=== PATIENT | male | born 1945 | race Caucasian/White ===

== ENCOUNTER 2016-06-23 05:11 | Observation (INO) | payer OTHER ==
--- NOTE | 2016-06-23 05:29 | CPEKG ---
Heart Rate: 101 RR Interval: 594 P-R Interval: 144 QRSD Interval: 70 QT Interval: 340 QTC Interval: 441 P [place]: 54 QRS [place]: 26 T Wave [place]: 243 EKG Severity - OTHERWISE NORMAL ECG - EKG Impression: SINUS TACHYCARDIA Electronically Signed By: Karlo Aquino 23-Jun-2016 07:10:20
--- NOTE | 2016-06-23 05:40 | EDPHY ---
H & P Stated Complaint: chest discomfort all night Time Seen by Provider: 06/23/16 05:27 HPI/ROS: Chief complaint: Chest pain HPI: 70-year-old male has been having substernal chest discomfort since 8 o' clock last night. At worst was a 10 on 10. Over the course of the evening has gone down to a 1 on 10. No shortness of breath. No fevers or chills. Has some generalized fatigue with ambulating. He has a history of a diabetes, coronary artery disease having had a DC in the past and has had cardiac stenting. Pain is described as a tightness. There are no aggravating or alleviating factors. ROS: 10 point Review of Systems is negative except as noted in the HPI. Past medical history: Type 2 diabetes Coronary artery disease DC Medications: Janumet twice a day Lipitor 40 mg once a day Clopidogrel 75 mg once a day Losartan HCT 100-25 once a day Lantus 25 units in a.m., 45 units at night Aspirin 325 once a day Amlodipine 2.5 mg once a day Allergies: Cipro, sulfa Physical exam: Gen: Awake, Alert, No Distress HEENT: Nose: no rhinorrhea Eyes: PERRLA, EOMI Mouth: Moist mucosa Neck: Supple, no JVD Chest: nontender, lungs clear to auscultation Heart: S1, S2 normal, no murmur Abd: Soft, non-tender, no guarding Back: no CVA tenderness, no midline tenderness Ext: no edema, non-tender Skin: no rash Neuro: CN II-XII intact, Sensation grossly intact, Strength 5/5 in bilateral upper and lower extremities - Personal History Current Tetanus/Diphtheria Vaccine: Yes - Medical/Surgical History Hx Asthma: No Hx Chronic Respiratory Disease: No Hx Diabetes: Yes Hx Cardiac Disease: Yes Hx Renal Disease: No Hx Cirrhosis: No Hx Alcoholism: No Hx HIV/AIDS: No Hx Splenectomy or Spleen Trauma: No Other PMH: PMHx: HTN, DC 16 YEARS AGO. PSHx: 3 cardiac stents, cataract - Social History Smoking Status: Never smoked Constitutional: Initial Vital Signs Temperature (C) 36.6 C 06/23/16 05:16 Heart Rate 105 H 06/23/16 05:16 Respiratory Rate 17 06/23/16 05:16 Blood Pressure 164/91 H 06/23/16 05:16 O2 Sat (%) 93 06/23/16 05:16 O2 Delivery Mode Room Air Allergies/Adverse Reactions: ciprofloxacin [From Cipro] Allergy (Mild, Verified 02/10/14 08:05) itch ciprofloxacin HCl [From Cipro] Allergy (Mild, Verified 02/10/14 08:05) itch Sulfa (Sulfonamide Antibiotics) Allergy (Unknown, Verified 02/10/14 08:05) meperidine HCl [From Demerol] Allergy (Verified 02/10/14 08:04) Home Medications: Medication Instructions Recorded Aspirin [Aspirin 325 mg (OTC)] 325 mg PO DAILY 02/07/14 Atorvastatin Calcium [Lipitor 40 40 mg PO DAILY 02/07/14 mg (RX)] Clopidogrel Bisulfate [Plavix (RX)] 75 mg PO DAILY 02/07/14 Insulin Glargine [Lantus 100 0 units SC HS 02/07/14 UNITS/ML (RX)] Losartan/Hydrochlorothiazide 1 each PO 02/07/14 [Losartan-Hctz 100-25 Mg Tab] Sitagliptin Phos/Metformin HCl 1 each PO 02/07/14 [Janumet Xr 100-1,000 mg Tablet] amLODIPine BESYLATE [Norvasc 2.5 2.5 mg PO DAILY 02/07/14 mg (RX)] Medical Decision Making - Diagnostics EKG Interpretation: EC08/2026: Sinus tachycardia with a rate of 101, normal axis, normal intervals, no acute ST or T-wave changes Imaging: Chest x-ray: Negative for acute process. ED Course/Re-evaluation: 70-year-old diabetic with coronary disease presenting with chest pain. Normal ECG at this time. Troponin is negative. Given his multiple risk factors and comorbidities in history will admit for further evaluation. Discussed with Dr. Fortunato Mera, hospitalist. Will admit to his service for further evaluation - Data Points Laboratory Results: Laboratory Results 06/23/16 05:30 06/23/16 05:30 06/23/16 06/23/16 05:30 05:30 WBC 10.72 10^3/uL H 10^3/uL (3.80-9.50) RBC 4.25 10^6/uL L 10^6/uL (4.40-6.38) Hgb 13.5 g/dL L g/dL (13.7-17.5) Hct 37.7 % L % (40.0-51.0) MCV 88.7 fL fL (81.5-99.8) MCH 31.8 pg pg (27.9-34.1) MCHC 35.8 g/dL g/dL (32.4-36.7) RDW 12.3 % % (11.5-15.2) Plt Count 247 10^3/uL 10^3/uL (150-400) MPV 9.5 fL fL (8.7-11.7) Neut % (Auto) 59.8 % % (39.3-74.2) Lymph % (Auto) 27.9 % % (15.0-45.0) Rains % (Auto) 9.1 % % (4.5-13.0) Eos % (Auto) 2.3 % % (0.6-7.6) Baso % (Auto) 0.5 % % (0.3-1.7) Nucleat RBC Rel Count 0.0 % % (0.0-0.2) Absolute Neuts (auto) 6.41 10^3/uL 10^3/uL (1.70-6.50) Absolute Lymphs (auto) 2.99 10^3/uL 10^3/uL (1.00-3.00) Absolute Monos (auto) 0.98 10^3/uL H 10^3/uL (0.30-0.80) Absolute Eos (auto) 0.25 10^3/uL 10^3/uL (0.03-0.40) Absolute Basos (auto) 0.05 10^3/uL 10^3/uL (0.02-0.10) Absolute Nucleated RBC 0.00 10^3/uL 10^3/uL (0-0.01) Immature Gran % 0.4 % % (0.0-1.1) Immature Gran # 0.04 10^3/uL 10^3/uL (0.00-0.10) Sodium 137 mEq/L mEq/L (134-144) Potassium 3.9 mEq/L mEq/L (3.5-5.2) Chloride 101 mEq/L mEq/L (97-110) Carbon Dioxide 23 mEq/l mEq/l (22-31) Anion Gap 13 mEq/L mEq/L (8-16) BUN 34 mg/dL H mg/dL (7-23) Creatinine 0.9 mg/dL mg/dL (0.7-1.3) Estimated GFR > 60 Glucose 202 mg/dL H mg/dL (70-100) Calcium 9.8 mg/dL mg/dL (8.5-10.4) Total Bilirubin 1.5 mg/dL H mg/dL (0.1-1.4) Conjugated Bilirubin 0.4 mg/dL mg/dL (0.0-0.5) Unconjugated Bilirubin 1.1 mg/dL mg/dL (0.0-1.1) AST 25 IU/L IU/L (17-59) ALT 37 IU/L IU/L (21-72) Alkaline Phosphatase 97 IU/L IU/L (38-126) Troponin I < 0.012 ng/mL ng/mL (0-0.034) Total Protein 7.9 g/dL g/dL (6.3-8.2) Albumin 4.4 g/dL g/dL (3.5-5.0) Lipase 376.0 IU/L H IU/L (23-300) Departure - Departure Referrals: Teri Newton MD [Primary Care Provider] - As per Instructions
[2016-06-23 05:45] LABS: % IMMATURE GRANULYOCYTES 0.4 % (0.0-1.1); ABSOLUTE IMMATURE GRANULOCYTES 0.04 10^3/uL (0.00-0.10); ADD DIFF? NO; ADD MORPH? NO; ADD SCAN? NO; ATYPICAL LYMPHOCYTE FLAG 10 (0-99); FRAGMENT RBC FLAG 0 (0-99); HEMATOCRIT 37.7 % (40.0-51.0); HEMOGLOBIN 13.5 g/dL (13.7-17.5); LEFT SHIFT FLG 0 (0-99); LIPEMIA HEMOLYSIS FLAG 90 (0-99); MEAN CELL HEMOGLOBIN 31.8 pg (27.9-34.1); MEAN CELL HEMOGLOBIN CONCENTR. 35.8 g/dL (32.4-36.7); MEAN CELL VOLUME 88.7 fL (81.5-99.8); MEAN PLATELET VOLUME 9.5 fL (8.7-11.7); PLATELET CLUMPS FLAG 0 (0-99); PLATELET COUNT 247 10^3/uL (150-400); RED BLOOD CELL COUNT 4.25 10^6/uL (4.40-6.38); RED CELL DISTRIBUTION WIDTH 12.3 % (11.5-15.2)
[2016-06-23 05:59] LABS: ALANINE AMINOTRANSFERASE 37 IU/L (21-72); ALBUMIN 4.4 g/dL (3.5-5.0); ALKALINE PHOSPHATASE 97 IU/L (38-126); ANION GAP 13 mEq/L (8-16); ASPARTATE AMINOTRANSFERASE 25 IU/L (17-59); BILIRUBIN,TOTAL 1.5 mg/dL (0.1-1.4); BILIRUBIN-CONJUGATED 0.4 mg/dL (0.0-0.5); BILIRUBIN-UNCONJUGATED 1.1 mg/dL (0.0-1.1); CALCIUM 9.8 mg/dL (8.5-10.4); CARBON DIOXIDE 23 mEq/l (22-31); CHLORIDE 101 mEq/L (97-110); CREATININE 0.9 mg/dL (0.7-1.3); GLOMERULAR FILTRATION RATE > 60; GLUCOSE 202 mg/dL (70-100); POTASSIUM 3.9 mEq/L (3.5-5.2); SODIUM 137 mEq/L (134-144); TOTAL PROTEIN 7.9 g/dL (6.3-8.2)
[2016-06-23 06:09] LABS: TROPONIN I < 0.012 ng/mL (0-0.034)
[2016-06-23] MEDS ORDERED: ACETAMINOPHEN 325 MG TAB PO PRN (07:00)
[2016-06-23] MEDS ORDERED: NITROGLYCERIN 0.4 MG BTL SL PRN (07:00)
[2016-06-23] MEDS ORDERED: D50W 25 GM/50 ML SYR IVP PRN (07:06)
[2016-06-23] MEDS ORDERED: NS 500 ML IV ONE (07:13)
[2016-06-23] MEDS: ASPIRIN 325 MG TAB PO SCH (08:02)
--- NOTE | 2016-06-23 08:11 | GHP ---
DATE OF ADMISSION: 06/23/2016 CHIEF COMPLAINT: Chest pain. HISTORY OF PRESENT ILLNESS: This is a 70-year-old man, with coronary artery disease, patient of Dr. Louise who presents with chest pain. This has been intermittent over the past few days. He descr ibes it as epigastric pain, consistent with indigestion. It is a burning pain that comes up through his sternal area. It is better with exercise. Worse when lying flat, unsure if it is worse after he eats. It is not associated with any nausea, vomiting, lightheadedness, dizziness, diaphoresis. He took Pepcid, Veronika-[place] and drank milk last night with no effect. He is currently resting comf ortably here. His chest pain has resolved. It is notably different than when he had his previous SC, which was 17 years ago. At that point, it was a sharp, stabbing pain radiating to his right neck and cheek. At that point, he received 3 bubba nts. He has been compliant with all of his cardiac medications. PAST MEDICAL/SURGICAL HISTORY: 1. Coronary artery disease, status post 3 stents about 17 years ago. 2. Diabetes mellitus. 3. Hypertension. MEDICATIONS: Please see medication reconciliation. ALLERGIES: Ciprofloxacin, sulfa and meperidine. FAMILY HISTORY: No coronary artery disease. SOCIAL HISTORY: Does not drink or smoke. REVIEW OF SYSTEMS: 10-point review of systems is conducted and is negative except per HPI. PHYSICAL EXAM: VITAL SIGNS: Blood pressure 146/89, pulse 105, respiration rate 20, saturating 96% on room air. Temperature is 36.6. GENERAL: The patient is a pleasant man who is resting comfortab ly. In no acute distress. HEENT: Shows him to be normocephalic, atraumatic. CARDIOVASCULAR: Exam shows him to be borderline tachycardia. No murmurs, rubs, or gallops. PULMONARY: Lungs clear to auscultation bilaterally. ABDOMINAL: Exam is soft, nontender, nondistended. SKIN: No rash. : No Hodgson. NEUROLOGIC: Shows him to be alert and oriented x3. He is moving all extremities. PSYC HIATRIC: Exam shows normal mood and affect. EXTREMITIES: Shows trace bilateral lower extremity ed manny. LABORATORY DATA: White count is 10.7. Basic metabolic panel is normal. Total bilirubin is 1.5. L ipase is 376. DATA: 1. Chest x-ray, which I personally viewed and interpreted, shows nothing acute. Normal chest x-ray . 2. EKG, which I personally viewed and interpreted, shows sinus rhythm. He has T-wave flattening in multiple precordial leads, most notably V4 through V6. He also has T-wave flattening in I, II and aVL. He has no olds to compare this. I discussed this with Dr. Aquino. Will admit to the ICU. IMPRESSION AND PLAN: A 70-year-old man with chest pain and a history of coronary artery disease. 1. Chest pain: More like epigastric pain. Seems most consistent with indigestion, but concerning given his history of coronary artery disease. I will ask my covering colleague to discuss this with Dr. Louise in the morning. We will keep him n.p.o. for now. 2. Diabetes mellitus type 2: We will restart his home insulin. Decrease dose if he stays n.p.o. We will follow his blood sugars. 3. Tachycardia: Would consider pulmonary embolus, but this seems much less likely, given his overa ll description of the pain. We will follow this. If it does not resolve, would workup further. I will give him a small bolus of normal saline. 4. Mild leukocytosis: Unclear significance. /[id number]/MODL
[2016-06-23] MEDS ORDERED: MAALOX/LIDO/HYOSC GI COCKTAIL 55 ML BOTTLE PO ONE (08:55)
[2016-06-23] MEDS: PANTOPRAZOLE SODIUM 40 MG TAB PO SCH (09:13)
--- NOTE | 2016-06-23 10:26 | CPEKG ---
Heart Rate: 106 RR Interval: 566 P-R Interval: 132 QRSD Interval: 66 QT Interval: 288 QTC Interval: 383 P [place]: 56 QRS [place]: 28 EKG Severity - ABNORMAL ECG - EKG Impression: SINUS TACHYCARDIA EKG Impression: NONSPECIFIC T ABNORMALITIES, DIFFUSE LEADS Electronically Signed By: Marcia Webb 24-Jun-2016 16:27:02
[2016-06-23] MEDS ORDERED: REGADENOSON 0.4 MG/5 ML SYR IVP ONE (10:35)
[2016-06-23] MEDS: ATORVASTATIN CALCIUM 40 MG TAB PO SCH (11:51)
[2016-06-23] MEDS: LOSARTAN/HCTZ 50/12.5 1 TAB PO SCH (11:51)
[2016-06-23] MEDS: CLOPIDOGREL BISULFATE 75 MG TAB PO SCH (11:53)
[2016-06-23] MEDS: INSULIN GLARGINE 100 UNITS/ML SYRINGE SC SCH (13:30)
[2016-06-23] MEDS ORDERED: ASPIRIN EC 325 MG TAB PO ONE (14:17)
[2016-06-23] MEDS ORDERED: diphenhydrAMINE 25 MG CAP PO ONE (14:17)
[2016-06-23] MEDS ORDERED: DIAZEPAM 5 MG TAB PO ONE (14:17)
[2016-06-23] MEDS ORDERED: IOPAMIDOL (ISOVUE-370) 150 ML BTL IV ONE ×2 (14:46→14:47)
[2016-06-23] MEDS ORDERED: LIDOCAINE 1% 30 ML SDV ONE (14:46)
[2016-06-23] MEDS ORDERED: VERAPAMIL 5 MG/2 ML VIAL ONE (14:46)
[2016-06-23] MEDS ORDERED: HEPARIN 10,000 UNIT/10 ML MDV ONE (14:46)
[2016-06-23] MEDS ORDERED: MIDAZOLAM 2 MG/2 ML VIAL ONE (14:49)
[2016-06-23] MEDS ORDERED: fentaNYL 100 MCG/2 ML INJ ONE (14:49)
[2016-06-23 15:41] LABS: APTT 26.3 SEC (23.0-38.0); INR 0.98 (0.83-1.16); PROTIME(PATIENT) 12.9 SEC (12.0-15.0)
[2016-06-23] MEDS ORDERED: ONDANSETRON 4 MG/2 ML VIAL IVP PRN (16:02)
[2016-06-23] MEDS ORDERED: HYDROCODONE/APAP 5/325 TAB PO PRN (16:02)
[2016-06-23] MEDS ORDERED: ATROPINE SULFATE 1 MG/10 ML SYR IVP PRN (16:02)
--- NOTE | 2016-06-23 16:40 | HOSPPROG ---
Hospitalist Progress Note Assessment/Plan: Chest pain - h/o prior stents [address] Louise. Abnormal stress test, pt to have angiogram this afternoon. If no new stents placed, need to reconsider his dual anti-platelet therapy, may be able to d/c Plavix. Discussed with Dr. Louise, will await results of angiogram. DM - AM Lantus held as he remained NPO, yet still had hypoglycemia this afternoon, bg ~60. Will halve pm insulin, has "finger food diet" now per Dr. Louise. Hypertension - adequate control on current regimen. Dispo - will require additional midnight given need for cardiac catheterization Subjective: Pt feels better. Reports pain was more epigastric in nature. Currently CP free. No SOB. Objective: Vital Signs Temp Pulse Resp BP Pulse Ox 36.4 C 86 18 120/79 98 06/23/16 16:16 06/23/16 16:16 06/23/16 16:16 06/23/16 16:16 06/23/16 16:16 06/22/16 06/23/16 06/24/16 05:59 05:59 05:59 Intake Total 300 Balance 300 PT 12.9 SEC (12.0-15.0) 06/23/16 15:10 INR 0.98 (0.83-1.16) 06/23/16 15:10 - Physical Exam Constitutional: no apparent distress Eyes: PERRL Ears, Nose, Mouth, Throat: moist mucous membranes Cardiovascular: regular rate and rhythym Respiratory: no respiratory distress, clear to auscultation Gastrointestinal: normoactive bowel sounds, soft, non-tender abdomen Skin: warm Musculoskeletal: full muscle strength Neurologic: AAOx3 ICD10 Worksheet Patient Problems: Problems Problem Status Onset Chest pain Acute - ICD10 Problem Qualifiers (1) Chest pain Qualifiers: Chest pain type: unspecified Ischemic chest pain type: I Qualified Code(s ): R07.9 - Chest pain, unspecified
[2016-06-23] MEDS ORDERED: INSULIN GLARGINE 100 UNIT/ML VIAL SC SCH ×3 (21:00)
--- NOTE | 2016-06-23 21:59 | CPIP ---
DATE OF PROCEDURE: 06/23/2016 INDICATIONS: A 70-year-old man known to me with multivessel coronary disease status post 3 vessel s tenting last performed in 2004 with LAD stenting. Previous stenting was in approximately 1998. Mariposa narvaez has multiple risk factors. Last stress test in my office was a normal nuclear imaging study in 2009. The patient now presents with exertional fatigue and intermittent rest and chest burning, di scomfort with some relief with a GI cocktail, some anginal-type features. The patient has ruled out for myocardial infarction. PROCEDURE PERFORMED: Elder protocol exercise treadmill stress test with nuclear imaging. DESCRIPTION: Informed consent was obtained. Baseline EKG showed sinus tachycardia at 118 beats per minute with occasional PVC and diffuse nonspecific ST-segment changes most prominent in inferior an d lateral leads. Patient was able to exercise for a total of 8 minutes. The last minute was a slow ed down stage III following Cardiolite injection. Cardiolite was injected 1 minute into the third s tage. The patient achieved 104% of age predicted maximal heart rate and test was stopped due to fat igue. Baseline blood pressure was 158/82, with maximal blood pressure in early recovery of 174/80. The patient developed intermittent somewhat atypical substernal chest discomfort somewhat different than his burning sensation. This waxed and waned during exercise. The patient had up to 1.[address]-segment depression, which was worsening of the baseline change most prominent in lead s V5 and V6. This returned to baseline by 3 minutes in recovery. OVERALL IMPRESSION: 1. Better than expected exercise capacity. 2. Equivocal exercise stress test based on EKG changes and symptoms. PLAN: Await nuclear imaging results. /[id number]/MODL
--- NOTE | 2016-06-23 22:15 | CPIP ---
DATE OF PROCEDURE: 06/23/2016 REFERRING PHYSICIAN: Dr. Kymberly Ridley. PRIMARY PHYSICIAN: Dr. Teri Newton. INDICATION: A 70-year-old man known to me with coronary disease, with previous stenting approximate ly 17 years ago in the right coronary and circumflex, and then 12 years ago in the LAD. The patient has diabetes, hypertension, and hyperlipidemia which have been treated. He now presents with 2 wee ks of progressive exertional fatigue and then 24-48 hours of substernal chest discomfort and burning . The patient ruled out for a myocardial infarction. His symptoms are [place] [facility] 3. He underwent a nuclear imaging stress test. He had EKG changes and mild atypical chest discom fort with exercise. Nuclear imaging showed an inferolateral defect on stress. No rest study was pe rformed. PROCEDURE PERFORMED: Left heart catheterization with left ventricular and selective coronary angiog castillo via right radial approach. DESCRIPTION: The risks, benefits, and alternatives were discussed in detail with the patient. Kvng n's test was performed which was normal. Informed consent was obtained. The patient was brought to the catheterization laboratory, and a time-out was performed. The right wrist was sterilely preppe d and draped. 2% lidocaine was utilized for a local anesthetic. A 6-Macedonian Slender sheath was plac ed in the right radial artery utilizing modified Seldinger technique. Intra-arterial verapamil and intravenous heparin were administered. All catheters were exchanged over an exchange-length J-wire. Diagnostic coronary angiography was performed with 6-Macedonian Nik right 4 and Nik left 3.5 c atheters. A pigtail catheter was utilized for left heart catheterization and left ventricular angio graphy. TR at the end of the procedure. The sheath was removed, and a TR band was placed. FINDINGS: Hemodynamics: Aortic pressure 113/65, mean of 86. Left ventricular pressure 131/29 end- diastolic, with a very small pullback gradient across the aortic valve. Coronary angiography: 1. Left main: The left main is nearly nonexistent with what amounts to separate ostia of the LAD a nd circumflex. 2. Left anterior descending: This is a moderate-sized vessel ending just before the apex, with 2 s mall proximal diagonal branch, a moderate mid to distal and a small distal diagonal branch. The mid LAD contains a stent with approximately 40% to 50% eccentric mid stenosis. Otherwise,there are mil d irregularities and no significant stenosis. 3. Circumflex: Nondominant vessel, with a large obtuse marginal branch and a moderate posterolater al branch. There is a proximal stent with up to 50% in-stent restenoses, unchanged from 2005. Othe rwise, there is minimal disease. 4. Right coronary: Large dominant vessel, with a large PDA and moderate posterolateral. There is proximal and mid stenting. There was up to 50% restenosis in the proximal stent. There are no crit ical lesions. Left ventricle: Normal in size and shape. Normal-appearing segmental wall motion with an ejection fraction of approximately 65%. No filling defects or significant mitral regurgitation. OVERALL IMPRESSION: 1. No critical coronary artery disease. 2. Wide patency of all previously placed stents, with no greater any area of 50%. Smooth intra-bubba nt restenosis, not likely worse than seen in 2005. 3. Normal left ventricular size and function. 4. Likely gastrointestinal/noncardiac chest pain. 5. Elevated left ventricular end-diastolic pressure. PLAN: 1. The patient likely does not require continued dual anti-platelet therapy and can just be on a si ngle anti-platelet agent. 2. Treat and evaluate probable GI-related chest pain. 3. Continue aggressive risk modification. 4. Consider outpatient echocardiogram for further evaluation of elevation of left ventricular end-d iastolic pressure elevation and mild pullback gradient across the aortic valve. /[id number]/MODL
[2016-06-24 07:18] VITALS: TEMP 98; O2SAT 93
[2016-06-24] MEDS: LOSARTAN/HCTZ 50/12.5 1 TAB PO SCH (08:20)
[2016-06-24] MEDS: ASPIRIN 325 MG TAB PO SCH (08:20)
[2016-06-24] MEDS: CLOPIDOGREL BISULFATE 75 MG TAB PO SCH (08:20)
[2016-06-24] MEDS: ATORVASTATIN CALCIUM 40 MG TAB PO SCH (08:21)
[2016-06-24] MEDS: PANTOPRAZOLE SODIUM 40 MG TAB PO SCH (08:21)
[2016-06-24] MEDS: INSULIN GLARGINE 100 UNITS/ML SYRINGE SC SCH (08:33)
[2016-06-24 11:36] VITALS: BP 132/79; PULSE 106; RESP 20
--- NOTE | 2016-06-24 21:18 | GDS ---
DISCHARGE DIAGNOSES: 1. Chest pain, resolved. 2. History of coronary artery disease with prior stents. 3. Diabetes mellitus. 4. Hypertension. CONSULTANTS: Dr. Warren Louise, Cardiology. CONSULTANTS: None. PROCEDURES: 1. Chest x-ray, June 23, 2016, showed lingular airspace disease consistent with either atelectasis or infiltrate. 2. Nuclear medicine myocardial perfusion scan, June 23, 2016, showed inferior wall with diminished attenuation of uncertain significance. 3. Left heart catheterization, June 23, 2016, showed no critical coronary artery disease, wide don ncy of all previously placed stents, with no area greater than 50%. Smooth intrastent restenosis, n o worse than seen in 2005. He had normal left ventricular size and function. HISTORY: For details, please see the history and physical dated June 23, 2016. In brief, the patie nt is a 70-year-old male, history of coronary disease and prior stents placed [address] Josse miguel, who presented to the emergency department with chest pain. He described his pain as epigastr ic in nature, consistent with indigestion. This then developed into a burning pain in his sternal a gina. Given his cardiac history and risk factors, he was admitted to the hospital for further evalua tion. HOSPITAL COURSE: The patient was admitted to the observation unit. He had negative troponins x2. D-dimer was negative making PE unlikely. His stress test was equivocal and Dr. Louise opted to per form left heart catheterization which showed no evidence of flow-limiting coronary artery disease. I discussed the case with Dr. Louise. The patient has been continued on dual antiplatelet therapy at this point. We both agree it is appropriate to discontinue his Plavix since he did not require a ny new stents and his prior stents were 17 years ago. He will continue on mono anti-platelet therap y with aspirin alone. Given his chest x-ray findings, cough and mild leukocytosis, the patient was treated with Levaquin for a total of 1 week for a possible pneumonia. He is also started on oral PP I therapy for presumed acid reflux induced chest discomfort. The patient was instructed to hold met formin for 2 days for renal protection given his contrast load during the angiogram. DISPOSITION: Patient is discharged home in stable condition. FOLLOWUP: 1. Dr. Martinez Louise, Cardiology. 2. Dr. Teri Newton, primary care provider. DISCHARGE MEDICATIONS: Please see [facility] for complete updated outpatient medication list. New me dications on discharge include Levaquin 750 mg p.o. daily #7, no refills; Protonix 40 mg p.o. daily, #30, no refills. Discontinued medications include Plavix. He will continue aspirin 325 mg p.o. da cristin, atorvastatin 40 mg p.o. daily, amlodipine 2.5 mg p.o. daily. His usual outpatient insulin dose s along with sitagliptin, metformin, losartan/hydrochlorothiazide. He is, however, instructed to ho ld metformin for 2 more days for renal protection. /[id number]/MODL
== END 2016-06-24 13:30 | disposition home or self-care (01) ==
LOC: F1N 07:28 → OBSVTOIN 16:39 → INTOOBSV 16:39 → F2W 17:06
PROVIDERS: ADMIT Student in an Organized Health Care Education/Training Program; ATTEND Hospitalist
PROC: B2151ZZ Fluoroscopy of Left Heart using Low Osmolar Contrast (ICD-10-PCS; principal; 2016-06-23 16:00)
PROC: 4A023N7 Measurement of Cardiac Sampling and Pressure, Left Heart, Percutaneous Approach (ICD-10-PCS; principal; 2016-06-23 16:00)
PROC: B2111ZZ Fluoroscopy of Multiple Coronary Arteries using Low Osmolar Contrast (ICD-10-PCS; principal; 2016-06-23 16:00)
DX: R07.9 Chest pain, unspecified (principal); R05 Cough; D72.829 Elevated white blood cell count, unspecified; I25.10 Atherosclerotic heart disease of native coronary artery without angina pectoris; I10 Essential (primary) hypertension; E11.9 Type 2 diabetes mellitus without complications; I25.2 Old myocardial infarction; E78.5 Hyperlipidemia, unspecified; Z95.5 Presence of coronary angioplasty implant and graft
CPT/HCPCS: 71020; 78451; 93005; 93017; 93458; A9500; G0378; J1644; J1815; J2250; J3010; Q9967; J2785

== ENCOUNTER 2017-04-21 07:55 | Emergency (ER) | payer OTHER ==
--- NOTE | 2017-04-21 08:10 | EDPHY ---
HPI/HX/ROS/PE/MDM Narrative: CHIEF COMPLAINT: Cold symptoms, feels dehydrated HPI: This patient is a 71 year-old male with history of diabetes, coronary artery disease, and hypertension complaining of lightheadedness, nausea, and headache. He has been changing his diabetes medication regimen with the guidance of his primary care provider, and is now taking Metformin only. His symptoms began yesterday evening. He endorses diarrhea. In the past, similar symptoms have been resolved with rehydration. He denies any abdominal or chest pain, shortness of breath, syncope, or palpitations. He does admit to mild cold symptoms. No vomiting, hematochezia, melena, urinary complaints, or other associated symptoms. REVIEW OF SYSTEMS: Aside from elements discussed in the HPI, a comprehensive 10-point review of systems was reviewed and is negative. PMH: 1. CAD s/p 3 stent placements (17 years ago) 2. Diabetes mellitus 3. Hypertension SOCIAL HISTORY: Family at bedside. Nonsmoker, no alcohol use. PHYSICAL EXAM: General:Patient is alert, in no acute distress. ENT:Eyes are normal to inspection. ENT inspection normal. Neck: Normal inspection. Full range of motion. Respiratory:No respiratory distress. Breath sounds normal bilaterally. Cardiovascular: Regular rate and rhythm. Strong peripheral pulses. Normal cap refill. Abdomen:The abdomen is nontender to palpation. There are no peritoneal signs. There are normal bowel sounds. Back: Normal to inspection. No tenderness to palpation. Skin: Normal color. No rash. Warm and dry. Extremities: Normal appearance. Full range of motion. Neuro: Oriented x3. Normal motor function. Normal sensory function. ED Course: 71 y/o male with history of diabetes, CAD, and hypertension presents with lightheadedness, nausea, diarrhea, and headache. Exam unremarkable. The patient is hypertensive at 187/108, vitals otherwise within normal limits. IV established. Plan for EKG, chest x-ray, labs including CBC, BMP, Troponin. Plan to administer 1L IV NS. EKG was ordered and interpreted by myself. Please see PCA Audit system for official reading. Rate 76, sinus rhythm, borderline T abnormalities, inferior leads. The patient is hyperglycemic with a BGL of 422. Chest x-ray shows evidence of mild airways disease vs bronchitis, no definite pneumonia. 09:55 Reassessed patient. He is feeling better following IV fluid administration. He refuses any additional workup at this time and feels safe to go home. Plan to discharge in good condition. Follow up and return precautions discussed. He and his family are comfortable with this plan. - Data Points Imaging Results: Imaging Impressions Chest X-Ray 04/21/17 08:18 Impression: 1. Mild Bronchitis/airways disease. 2. No definite focal pneumonia. 3. Atherosclerotic tortuous aorta. 4. Coronary stents. Imaging: I viewed and interpreted images myself Laboratory Results: Laboratory Results 04/21/17 08:25 04/21/17 08:25 04/21/17 04/21/17 08:25 08:25 WBC 5.64 10^3/uL 10^3/uL (3.80-9.50) RBC 4.72 10^6/uL 10^6/uL (4.40-6.38) Hgb 13.4 g/dL L g/dL (13.7-17.5) Hct 39.4 % L % (40.0-51.0) MCV 83.5 fL fL (81.5-99.8) MCH 28.4 pg pg (27.9-34.1) MCHC 34.0 g/dL g/dL (32.4-36.7) RDW 14.5 % % (11.5-15.2) Plt Count 228 10^3/uL 10^3/uL (150-400) MPV 9.4 fL fL (8.7-11.7) Neut % (Auto) 57.4 % % (39.3-74.2) Lymph % (Auto) 27.1 % % (15.0-45.0) [place] % (Auto) 11.2 % % (4.5-13.0) Eos % (Auto) 3.2 % % (0.6-7.6) Baso % (Auto) 0.7 % % (0.3-1.7) Nucleat RBC Rel Count 0.0 % % (0.0-0.2) Absolute Neuts (auto) 3.24 10^3/uL 10^3/uL (1.70-6.50) Absolute Lymphs (auto) 1.53 10^3/uL 10^3/uL (1.00-3.00) Absolute Monos (auto) 0.63 10^3/uL 10^3/uL (0.30-0.80) Absolute Eos (auto) 0.18 10^3/uL 10^3/uL (0.03-0.40) Absolute Basos (auto) 0.04 10^3/uL 10^3/uL (0.02-0.10) Absolute Nucleated RBC 0.00 10^3/uL 10^3/uL (0-0.01) Immature Gran % 0.4 % % (0.0-1.1) Immature Gran # 0.02 10^3/uL 10^3/uL (0.00-0.10) Sodium 138 mEq/L mEq/L (134-144) Potassium 4.4 mEq/L mEq/L (3.5-5.2) Chloride 99 mEq/L mEq/L (97-110) Carbon Dioxide 25 mEq/l mEq/l (22-31) Anion Gap 14 mEq/L mEq/L (8-16) BUN 20 mg/dL mg/dL (7-23) Creatinine 0.9 mg/dL mg/dL (0.7-1.3) Estimated GFR > 60 Glucose 422 mg/dL H mg/dL (70-100) Calcium 9.9 mg/dL mg/dL (8.5-10.4) Troponin I < 0.012 ng/mL ng/mL (0.000-0.034) Medications Given: Discontinued Medications Sodium Chloride (Ns) 1,000 mls @ 0 mls/hr IV EDNOW ONE; Wide Open PRN Reason: Protocol Stop: 04/21/17 08:19 Last Admin: 04/21/17 08:29 Dose: 1,000 mls Sodium Chloride (Ns) 1,000 mls @ 0 mls/hr IV ONCE ONE PRN Reason: Wide Open Stop: 04/21/17 09:19 Last Admin: 04/21/17 09:34 Dose: 1,000 mls General Time Seen by Provider: 04/21/17 08:07 Initial Vital Signs: Initial Vital Signs Temperature (C) 36.6 C 04/21/17 08:00 Heart Rate 88 04/21/17 08:00 Respiratory Rate 19 04/21/17 08:00 Blood Pressure 187/108 H 04/21/17 08:00 O2 Sat (%) 95 04/21/17 08:00 O2 Delivery Mode Room Air Allergies/Adverse Reactions: ciprofloxacin [From Cipro] Allergy (Mild, Verified 04/21/17 07:58) itch ciprofloxacin HCl [From Cipro] Allergy (Mild, Verified 04/21/17 07:58) itch Sulfa (Sulfonamide Antibiotics) Allergy (Unknown, Verified 04/21/17 07:58) meperidine HCl [From Demerol] Allergy (Verified 04/21/17 07:58) Home Medications: Medication Instructions Recorded Aspirin [Aspirin 325 mg (*)] 325 mg PO DAILY 02/07/14 Atorvastatin Calcium [Lipitor 40 40 mg PO DAILY 02/07/14 mg (*)] amLODIPine BESYLATE [Norvasc 2.5 2.5 mg PO DAILY 02/07/14 mg (*)] Insulin Glargine,Hum.rec.anlog 25 unit SQ 0800 06/23/16 [Lantus Solostar] Insulin Glargine,Hum.rec.anlog 45 unit SQ HS 06/23/16 [Lantus Solostar] Losartan/Hydrochlorothiazide 1 each PO DAILY 06/23/16 [Losartan-Hctz 100-25 mg Tab] Sitagliptin Phos/Metformin HCl 1 each PO BIDMEAL 06/23/16 [Janumet 50-1,000 mg Tablet] Pantoprazole Sodium [Protonix 40mg 40 mg PO DAILY #30 tab 06/24/16 (*)] Departure - Departure Disposition: Home, Routine, Self-Care Clinical Impression: Dehydration, Lightheadedness Diabetes Qualifiers: Diabetes mellitus type: type 2 Diabetes mellitus complication status: with hyperglycemia Diabetes mellitus skilled nursing 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 Follow up with your primary care physician in 2-3 days for further evaluation and discussion of your medication regimen. 2. Stay well hydrated. 3. Return to the emergency department if you develop fever, chest pain, shortness of breath, fainting, increased weakness or lightheadedness, uncontrollable vomiting or diarrhea, or other worsening of condition. Referrals: Teri Newton MD [Primary Care Provider] - As per Instructions Report Scribed for: Amado Munoz Report Scribed by: Izabela Govea Date of Report: 04/21/17 Time of Report: 08:10 Physician Review and Approval Statement: Portions of this note were transcribed by an ED scribe. I personally performed the history, physical exam, and medical decision making; and confirm the accuracy of the information in the transcribed note.
--- NOTE | 2017-04-21 08:16 | CPEKG ---
Heart Rate: 76 RR Interval: 789 P-R Interval: 140 QRSD Interval: 72 QT Interval: 392 QTC Interval: 441 P [place]: 59 QRS [place]: 39 T Wave [place]: -13 EKG Severity - BORDERLINE ECG - EKG Impression: SINUS RHYTHM EKG Impression: BORDERLINE T ABNORMALITIES, INFERIOR LEADS Electronically Signed By: Amado Munoz 21-Apr-2017 14:40:21
[2017-04-21] MEDS ORDERED: NS 1,000 ML IV ONE ×2 (08:18→09:18)
[2017-04-21 08:32] VITALS: RESP 16
[2017-04-21 08:34] LABS: PLATELET COUNT 228 10^3/uL (150-400)
[2017-04-21 10:17] VITALS: BP 168/107; PULSE 89; TEMP 97.7; O2SAT 95
== END 2017-04-21 10:17 | disposition home or self-care (01) ==
DX: R42 Dizziness and giddiness (principal); E11.65 Type 2 diabetes mellitus with hyperglycemia; E86.0 Dehydration; I25.10 Atherosclerotic heart disease of native coronary artery without angina pectoris; I10 Essential (primary) hypertension; E86.9 Volume depletion, unspecified; Z79.4 Long term (current) use of insulin; Z95.5 Presence of coronary angioplasty implant and graft; Z79.82 Long term (current) use of aspirin

== ENCOUNTER → 2017-07-15 | Outpatient (CLI) | payer OTHER | LOC: BMCIMAGING 09:37 | PROVIDERS: ATTEND Nurse Practitioner Adult Health | DX: M25.512 Pain in left shoulder (principal); W19.XXXA Unspecified fall, initial encounter ==

== ENCOUNTER 2018-01-14 03:50 | Emergency (ER) | payer OTHER ==
--- NOTE | 2018-01-14 04:27 | EDPHY ---
H & P Stated Complaint: top of head hurts, hit it yesterday Time Seen by Provider: 01/14/18 03:57 HPI/ROS: HPI The patient presents with head injury which occurred yesterday. He hit his head on his trailer which is metal. He sustained some sort of injury to his head though today has had drainage from the wound which is yellowish in color. He reports a severe throbbing well-localized headache to his posterior occiput. This started slowly and has gotten progressively worse. He took ibuprofen with some improvement in his symptoms. He has not had any vision changes, nausea or vomiting. He does take aspirin 325 daily.. REVIEW OF SYSTEMS 10 systems were reviewed and negative with the exception of the elements mentioned in the history of present illness. PMHx: Diabetes, CAD Soc Hx: Here by himself PHYSICAL General Appearance: Alert, no distress Head; posterior occiput with 3 cm abrasion with yellowish, slightly cloudy fluid draining from it, surrounding honey crust lesions, mild erythema Eyes: Pupils equal and round no pallor or injection ENT, Mouth: Mucous membranes moist Respiratory: There are no retractions, lungs are clear to auscultation Cardiovascular: Regular rate and rhythm Gastrointestinal: Abdomen is soft and non-tender, no masses, bowel sounds normal Neurological: A&O, moves all extremities Skin: Warm and dry, no rashes Musculoskeletal: Neck is supple non tender Extremities: symmetrical, full range of motion Psychiatric: Patient is oriented X 3, there is no agitation Source: Patient Exam Limitations: No limitations - Personal History Current Tetanus/Diphtheria Vaccine: Yes Current Tetanus Diphtheria and Acellular Pertussis (TDAP): Yes - Medical/Surgical History Hx Asthma: No Hx Chronic Respiratory Disease: No Hx Diabetes: Yes Hx Cardiac Disease: Yes Hx Renal Disease: No Hx Cirrhosis: No Hx Alcoholism: No Hx HIV/AIDS: No Hx Splenectomy or Spleen Trauma: No Other PMH: PMHx: HTN, CA 17 YEARS AGO. PSHx: 3 cardiac stents, cataract surgery w/ lens implants;type2 diabetes-uses Lantus bid - Social History Smoking Status: Former smoker Constitutional: Initial Vital Signs Temperature (C) 36.6 C 01/14/18 04:00 Heart Rate 81 01/14/18 04:00 Respiratory Rate 18 01/14/18 04:00 Blood Pressure 165/100 H 01/14/18 04:00 O2 Sat (%) 94 01/14/18 04:00 O2 Delivery Mode Room Air Allergies/Adverse Reactions: ciprofloxacin [From Cipro] Allergy (Mild, Verified 01/14/18 03:58) itch ciprofloxacin HCl [From Cipro] Allergy (Mild, Verified 01/14/18 03:58) itch Sulfa (Sulfonamide Antibiotics) Allergy (Unknown, Verified 01/14/18 03:58) meperidine HCl [From Demerol] Allergy (Verified 01/14/18 03:58) Home Medications: Medication Instructions Recorded Aspirin [Aspirin 325 mg (*)] 325 mg PO DAILY 02/07/14 Atorvastatin Calcium [Lipitor 40 40 mg PO DAILY 02/07/14 mg (*)] amLODIPine BESYLATE [Norvasc 2.5 2.5 mg PO DAILY 02/07/14 mg (*)] Losartan/Hydrochlorothiazide 1 each PO DAILY 06/23/16 [Losartan-Hctz 100-25 mg Tab] Sitagliptin Phos/Metformin HCl 1 each PO BIDMEAL 06/23/16 [Janumet 50-1,000 mg Tablet] Cephalexin [Keflex (*)] 500 mg PO Q6H #28 cap 01/14/18 Medical Decision Making Differential Diagnosis: 72-year-old male with head injury 2 days ago now with what appears to be infected wound with slightly cloudy yellowish fluid draining from a small abrasion. CT scan of head is unremarkable. There is no skull fracture. I think he may have an infected wound though I do not see any area of significant fluid collection requiring drainage. I will start him on Keflex. He will be discharged from the emergency department. Departure - Departure Disposition: Home, Routine, Self-Care Clinical Impression: Scalp abrasion, infected Qualifiers: Encounter type: initial encounter Qualified Code(s): S00.01XA - Abrasion of scalp, initial encounter Headache Qualifiers: Headache type: unspecified Headache chronicity pattern: acute headache Intractability: not intractable Qualified Code(s): R51 - Headache Condition: Good Instructions: Wound Infection (ED) Additional Instructions: I recommend you use antibiotic ointment and a Band-Aid on your wound until it is better. It is okay to get it wet in the shower or the bath. Please return to the emergency department if you develop a fever or are worse in any way. Otherwise follow up with your primary care doctor for recheck in 1-2 days. Referrals: Teri Newton MD [Primary Care Provider] - As per Instructions Prescriptions: Cephalexin [Keflex (*)] 500 mg PO Q6H #28 cap
[2018-01-14] MEDS ORDERED: CEPHALEXIN 500 MG CAP PO ONE (04:37)
[2018-01-14] MEDS ORDERED: CEPHALEXIN 500MG PREPACK#4 BTL TAKEHOME ONE (04:37)
[2018-01-14 05:04] VITALS: BP 173/91
== END 2018-01-14 05:03 | disposition home or self-care (01) ==
DX: S00.01XA Abrasion of scalp, initial encounter (principal); R51 Headache; W22.8XXA Striking against or struck by other objects, initial encounter